=== PATIENT | female | born 1950 | race Caucasian/White ===

== ENCOUNTER 2019-04-04 10:03 | Outpatient (CLI) | payer OTHER | END 2019-04-04 11:00 | disposition home or self-care (01) | LOC: MRI 10:03 | DX: M25.561 Pain in right knee (principal); M25.562 Pain in left knee | CPT/HCPCS: 73721 ==

== ENCOUNTER 2025-03-03 09:39 | Outpatient (CLI) | payer OTHER | END 2025-03-03 11:07 | disposition home or self-care (01) | LOC: MRI 09:39 | DX: M25.562 Pain in left knee (principal) | CPT/HCPCS: 73718 ==